=== PATIENT | male | born 1990 | race African-American/Black ===

== ENCOUNTER 2016-10-28 00:04 | Emergency (ER) | payer OTHER ==
[2016-10-28] MEDS ORDERED: Proparacaine 0.5% Ophth Soln 15 ML Bottle EYERT STA (00:15)
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
[2016-10-28 01:33] VITALS: BP 129/77
== END 2016-10-28 01:30 | disposition home or self-care (01) ==
LOC: MW.ED 00:04
DX: S05.01XA Injury of conjunctiva and corneal abrasion without foreign body, right eye, initial encounter (principal)
CPT/HCPCS: 99283

== ENCOUNTER 2017-04-28 17:13 | Emergency (ER) | payer OTHER ==
[2017-04-28] MEDS ORDERED: Diphtheria,Pertussis(Acell),Tetanus Vaccine 0.5 ML Syringe IM ONE (17:16)
[2017-04-28] MEDS ORDERED: Ketorolac 60 MG/2 ML SDV IM ONE (17:16)
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
[2017-04-28] MEDS ORDERED: HYDROmorphone 2 MG/ML Syringe ONE (18:09)
[2017-04-28] MEDS ORDERED: Ondansetron 4 MG/2 ML SDV ONE (18:12)
[2017-04-28] MEDS ORDERED: HYDROmorphone 2 MG/ML Syringe IVPUSH ONE (18:28)
[2017-04-28] MEDS ORDERED: Ondansetron 4 MG/2 ML SDV IVPUSH ONE (18:28)
[2017-04-28 18:50] VITALS: BP 142/86
--- NOTE | 2017-04-29 17:11 | CR ---
EXAM DATE: 04/28/17 PATIENT'S AGE: 26 Patient: PAULINE MAYES Facility: [place], [place] Site . Site : 1990 Study: XRay Extremity Left [id number]/26/2017 6:02:50 PM Ordering Physician: Doctor Lancaster Final Report: INDICATION: Injury. Technique: Two views of the left elbow. Findings: Examination is significant for fracture dislocation of the elbow with the radius and ulna posterior to the distal humerus. Multiple fracture fragments noted likely arising from the lateral epicondyle of the humerus and proximal radius. Impression: Fracture dislocation of the left elbow . Dictated by Christian Roman MD @ Apr 28 2017 6:09PM (Electronic Signature) Report Signed by Proxy. EZEKIEL
== END 2017-04-28 19:08 ==
LOC: MW.ED 17:13
DX: S42.402A Unspecified fracture of lower end of left humerus, initial encounter for closed fracture (principal); S53.125A Posterior dislocation of left ulnohumeral joint, initial encounter; V29.9XXA Motorcycle rider (driver) (passenger) injured in unspecified traffic accident, initial encounter
CPT/HCPCS: 73070; 90471; 90715; 96372; 96374; 96375; 99284; J1170; J1885; J2405

== ENCOUNTER 2017-05-07 22:06 | Emergency (ER) | payer OTHER ==
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
[2017-05-08] MEDS ORDERED: Acetaminophen/HYDROcodone 325-7.5 MG Tab PO ONE (00:28)
[2017-05-08 00:57] VITALS: BP 136/63
--- NOTE | 2017-05-08 13:21 | CR ---
EXAM DATE: 05/07/17 PATIENT'S AGE: 26 Patient: PAULINE MAYES Facility: [place], [place] Site . Site : 1990 Study: XRay Extremity Left Elbow-05/07/2017 10:55:54 PM Ordering Physician: Garry Ferguson Final Report: Indication: Fall today. Technique: Left elbow five views. Comparison: 04/28/2017. Findings: There is posterior displacement/dislocation of the radial head prosthesis relative to the capitellum. There is also widening of the ulnohumeral joint. Mild radial displacement of the proximal ulna relative to the distal humerus. Fracture fragments anterior to the distal humerus persists. No acute fracture demonstrated. Dorsal soft tissue swelling. Impression: Mild persistent or recurrent posterior dislocation of the radial head prosthesis relative to the capitellum with widening of the ulnohumeral joint and mild radial displacement of the proximal ulna. No new/acute fracture demonstrated. Dictated by Cody Acevedo MD @ 05/07/2017 11:28:32 PM Dictated by: Cody Acevedo MD @ 05/07/2017 23:28:48 (Electronic Signature) Report Signed by Proxy. EZEKIEL
--- NOTE | 2017-05-08 13:22 | CR ---
EXAM DATE: 05/07/17 PATIENT'S AGE: 26 Patient: PAULINE MAYES Facility: [place], [place] Site . Site : 1990 Study: XRay Extremity Left Elbow-05/08/2017 12:33:46 AM Ordering Physician: Garry Ferguson Final Report: Indication: Postreduction Technique: Single lateral view left elbow Comparison: Same date at 10:28 p.m. Findings/impression: : Fracture dislocation of the left elbow. Mild persistent subluxation of the humerus from the olecranon, unchanged. Small bone fragments are seen anterior and posterior to the distal humerus, unchanged. A right radial head replacement is noted, with no change and inferior subluxation with respect to the capitellum. Diffuse soft tissue swelling and overlying splint noted. Dictated by Anjelica Peres MD @ May 08 2017 12:34AM (Electronic Signature) Report Signed by Proxy. EZEKIEL
== END 2017-05-08 00:45 | disposition home or self-care (01) ==
LOC: MW.ED 22:06
DX: S59.902D Unspecified injury of left elbow, subsequent encounter (principal); M25.522 Pain in left elbow; X58.XXXD Exposure to other specified factors, subsequent encounter; Z46.89 Encounter for fitting and adjustment of other specified devices
CPT/HCPCS: 73070; 73080; 99282; 99283; A9270; 99284

== ENCOUNTER 2017-05-08 17:43 | Emergency (ER) | payer OTHER ==
[2017-05-08 17:56] VITALS: BP 152/97
--- NOTE | 2017-05-08 18:08 | EDM.PDOC ---
ED HPI GENERAL MEDICAL PROBLEM - General Chief Complaint: General Stated Complaint: CAST CAUSING PAIN Time Seen by Provider: 05/08/17 18:06 Source of Information: Reports: Patient History Limitations: Reports: No Limitations - History of Present Illness INITIAL COMMENTS - FREE TEXT/NARRATIVE: History of present illness: []Patient had a fracture dislocation of his elbow and was seen by today and splint was repositioned. Comes in stating that the distal part of his cast is digging into his hand making his fingers numb. Review of systems: As per history of present illness and below otherwise all systems reviewed and negative. Past medical history: As per history of present illness and as reviewed below otherwise noncontributory. Surgical history: As per history of present illness and as reviewed below otherwise noncontributory. Social history: No reported history of drug or alcohol abuse. Family history: As per history of present illness and as reviewed below otherwise noncontributory. Physical exam: General: Well developed, well nourished in NAD HEENT: Atraumatic, normocephalic, pupils reactive, negative for conjunctival pallor or scleral icterus, mucous membranes moist, throat clear, neck supple, nontender, trachea midline. Lungs: Clear to auscultation, breath sounds equal bilaterally, chest nontender. Heart: S1S2, regular, negative for clicks, rubs, or JVD. Abdomen: Soft, nondistended, nontender. Negative for masses or hepatosplenomegaly. Negative for costovertebral tenderness. Pelvis: Stable nontender. Genitourinary: Deferred. Rectal: Deferred. Extremities: Atraumatic, negative for cords or calf pain. Neurovascular unremarkable. Neuro: Awake, alert, oriented. Cranial nerves II through XII unremarkable. Cerebellum unremarkable. Motor and sensory unremarkable throughout. Exam nonfocal. Diagnostics: [] Therapeutics: []Distal ulnar portion of the cast was removed to alleviate the pressure point Impression: []Cast cutting Plan: []Follow-up with Dr. Akhtar has directed Definitive disposition and diagnosis as appropriate pending reevaluation and review of above. Hand Pain Score (Numeric/FACES): 10 - Related Data Allergies Allergy/AdvReac Type Severity Reaction Status Date / Time No Known Allergies Allergy Verified 05/08/17 17:56 Home Meds: Home Meds oxyCODONE HCl/Acetaminophen [oxyCODONE-Acetaminophen 2.5-325] 1 tab PO ASDIRECTED 05/07/17 [History] Past Medical History - Past Health History Medical/Surgical History: Denies Medical/Surgical History HEENT History: Reports: None Cardiovascular History: Reports: None Respiratory History: Reports: None Gastrointestinal History: Reports: None Genitourinary History: Reports: None Musculoskeletal History: Reports: None Neurological History: Reports: Head Trauma Psychiatric History: Reports: None Endocrine/Metabolic History: Reports: None Hematologic History: Reports: None Immunologic History: Reports: None Oncologic (Cancer) History: Reports: None Dermatologic History: Reports: None - Infectious Disease History Infectious Disease History: Reports: Chicken Pox - Past Surgical History Head Surgeries/Procedures: Reports: None HEENT Surgical History: Reports: None Cardiovascular Surgical History: Reports: None GI Surgical History: Reports: None Male Surgical History: Reports: None Social & Family History - Family History Family Medical History: Noncontributory - Tobacco Use Smoking Status *Q: Never Smoker Years of Tobacco use: 3 Packs/Tins Daily: 0.1 - Caffeine Use Caffeine Use: Reports: None - Recreational Drug Use Recreational Drug Use: No ED ROS GENERAL - Review of Systems Review Of Systems: See Below (See history of present illness) ED EXAM, SKIN/RASH Exam: See Below (See history of present illness) Course - Vital Signs Last Recorded V/S: Last Vital Signs Temp 97.9 F 05/08/17 17:53 Pulse 90 05/08/17 17:53 Resp 18 05/08/17 17:53 BP 152/97 H 05/08/17 17:53 Pulse Ox 100 05/08/17 17:53 Departure - Departure Time of Disposition: 18:08 Disposition: Home, Self-Care 01 Condition: Good Clinical Impression: Cast discomfort - Discharge Information Additional Instructions: The following information is given to patients seen in the emergency department who are being discharged to home. This information is to outline your options for follow-up care. We provide all patients seen in our emergency department with a follow-up referral. The need for follow-up, as well as the timing and circumstances, are variable depending upon the specifics of your emergency department visit. If you don't have a primary care physician on staff, we will provide you with a referral. We always advise you to contact your personal physician following an emergency department visit to inform them of the circumstance of the visit and for follow-up with them and/or the need for any referrals to a consulting specialist. The emergency department will also refer you to a specialist when appropriate. This referral assures that you have the opportunity for follow-up care with a specialist. All of these measure are taken in an effort to provide you with optimal care, which includes your follow-up. Under all circumstances we always encourage you to contact your private physician who remains a resource for coordinating your care. When calling for follow-up care, please make the office aware that this follow-up is from your recent emergency room visit. If for any reason you are refused follow-up, please contact the [facility] Emergency Department at and asked to speak to the emergency department charge nurse. Ice and massage hand to decrease swelling follow-up as directed. Return if symptoms worsen or change
== END 2017-05-08 18:12 | disposition home or self-care (01) ==
LOC: MW.ED 17:43
DX: Z46.89 Encounter for fitting and adjustment of other specified devices (principal)
CPT/HCPCS: 99282

== ENCOUNTER 2017-05-09 23:39 | Emergency (ER) | payer OTHER ==
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
[2017-05-10 01:55] VITALS: BP 163/86
--- NOTE | 2017-05-14 09:38 | CR ---
EXAM DATE: 05/09/17 PATIENT'S AGE: 26 Patient: PAULINE MAYES Facility: [facility] Site . Site : 1990 Study: XRay-Extremity Left [id number]/[id number] 12:26:40 AM Ordering Physician: Garry Ferguson Final Report: INDICATION: S/P SUGERY DEC 5 PAIN WORSENING/UNABLE TO REPOSITION ELBOW FOR OTHER VIEWS INDICATION: Elbow pain worsening, unable to reposition elbow for other views TECHNIQUE: Elbow radiograph 1 view left COMPARISON: 05/08/2017, 05/07/2017, 04/28/2017 FINDINGS: Bones: An osseous fragment is from the radial head is noted without interval change from prior fracture deformity. A radial head prosthesis is noted without interval change. There is a stable gap between the proximal radial diaphysis in the neck of the radial head prosthesis measuring 6 mm. Joints: The elbow joint is unremarkable on the single lateral view. No significant displacement of the anterior or posterior fat pads noted to suggest an effusion. Soft tissues: Moderate diffuse subcutaneous edema and swelling is seen along the dorsal aspect of the elbow. No radiopaque foreign bodies are seen. IMPRESSIONS: 1. No acute osseous injuries or abnormalities are noted. 2. Complete radiographic assessment would require at least an additional orthogonal view. Dictated by Yosef Coleman MD @ 05/10/2017 12:35:28 AM Prelim Report By Dr. Yosef Coleman @ 05/10/2017 12:35:33 AM ADDENDUM Two additional views of the elbow are submitted and demonstrate persistent radial subluxation of the radial head prosthesis, similar to that seen on the study. Prelim Report By Dr. Yosef Coleman @ 05/10/2017 12:35:33 AM Dictated by: Yosef Coleman MD @ 05/10/2017 15:46:18 Signed by: Yosef Coelman MD @ 05/10/2017 3:46:18 PM (Electronic Signature) Signed by: Yosef Coleman MD @05/13/2017 8:45:49 PM (Electronic Signature) Report Signed by Proxy. EZEKIEL
== END 2017-05-10 01:52 | disposition home or self-care (01) ==
LOC: MW.ED 23:39
DX: T84.028A Dislocation of other internal joint prosthesis, initial encounter (principal); M96.89 Other intraoperative and postprocedural complications and disorders of the musculoskeletal system; X58.XXXA Exposure to other specified factors, initial encounter
CPT/HCPCS: 73070-26-LT; 73070-LT; 99283; 99284

== ENCOUNTER 2017-05-31 15:14 | Emergency (ER) | payer OTHER | END 2017-05-31 15:44 | disposition left against medical advice (07) | LOC: MW.ED 15:14 | DX: Z53.21 Procedure and treatment not carried out due to patient leaving prior to being seen by health care provider (principal) ==

== ENCOUNTER 2019-10-02 07:57 | Emergency (ER) | payer OTHER, BC ==
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
[2019-10-02 08:11] VITALS: BP 132/82; PULSE 72
--- NOTE | 2019-10-02 09:33 | CR ---
Left shoulder: 3 views of the left shoulder were obtained. Comparison: No prior shoulder exam is available. Glenohumeral joint appears within normal limits. Acromioclavicular joint shows minimal inferior bony projection which is felt not to be significant enough for impingement. No acute fracture or other abnormality is appreciated. Impression: 1. Findings believed to be incidental at this time within the acromioclavicular joint. 2. Left shoulder study is otherwise unremarkable. Diagnostic code #2 This report was dictated in MDT
--- NOTE | 2019-10-02 09:33 | CR ---
Left hand: 2 views of the left hand were obtained. Comparison: Prior left hand exam of 04/14/15. Joint spaces are preserved. No acute fracture or other bony abnormality is identified. Impression: 1. No abnormality is appreciated on 2 view left hand exam. Diagnostic code #1 This report was dictated in MDT
== END 2019-10-02 09:17 | disposition home or self-care (01) ==
LOC: MW.ED 07:57
DX: S40.012A Contusion of left shoulder, initial encounter (principal); S60.222A Contusion of left hand, initial encounter; V43.52XA Car driver injured in collision with other type car in traffic accident, initial encounter
CPT/HCPCS: 73030-26-LT; 73030-LT; 73120-26-LT; 73120-LT; 99283; 99284-25

== ENCOUNTER 2019-10-03 09:54 | Emergency (ER) | payer OTHER, BC ==
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
[2019-10-03] MEDS ORDERED: Ketorolac 60 MG/2 ML SDV IM ONE (10:14)
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
[2019-10-03 11:24] VITALS: BP 152/90; PULSE 70
== END 2019-10-03 11:21 | disposition home or self-care (01) ==
LOC: MW.ED 09:54
DX: S83.92XA Sprain of unspecified site of left knee, initial encounter (principal); M54.5 Low back pain; V43.52XA Car driver injured in collision with other type car in traffic accident, initial encounter
CPT/HCPCS: 73562; 96372; 99284; J1885; 99283

== ENCOUNTER 2021-02-09 | Emergency (ER) | payer MEDICAID, OTHER ==
[2021-02-09] MEDS ORDERED: diphenhydrAMINE 50 MG/ML SDV IVPUSH ONE (00:24)
[2021-02-09] MEDS ORDERED: Metoclopramide 10 MG/2 ML SDV IVPUSH ONE (00:24)
--- NOTE | 2021-02-09 00:26 | EDM.PDOC ---
ED HPI GENERAL MEDICAL PROBLEM - General Chief Complaint: Headache Stated Complaint: SEVERE HEADACHE Time Seen by Provider: 02/09/21 00:13 Source of Information: Reports: Patient History Limitations: Reports: No Limitations - History of Present Illness INITIAL COMMENTS - FREE TEXT/NARRATIVE: 30-year-old male presents today for headache. States headache started about 3 to 4 hours ago. Patient is a Maxi worse headache is ever had does not occasionally get headaches. He denies any vision changes any numbness weakness in his extremities. He has no other neurologic complaints other than headache. Denies any hit in the head. Patient blood pressure greater than 260s have history of high blood pressure. Headache Pain Score (Numeric/FACES): 10 - Related Data Allergies Allergy/AdvReac Type Severity Reaction Status Date / Time No Known Allergies Allergy Verified 02/09/21 00:17 Home Meds: Home Meds . [No Known Home Meds] 02/09/21 [History] Past Medical History - Past Health History Medical/Surgical History: Denies Medical/Surgical History HEENT History: Reports: None Cardiovascular History: Reports: None Respiratory History: Reports: None Gastrointestinal History: Reports: None Genitourinary History: Reports: None Musculoskeletal History: Reports: None Neurological History: Reports: Head Trauma Psychiatric History: Reports: None Endocrine/Metabolic History: Reports: None Hematologic History: Reports: None Immunologic History: Reports: None Oncologic (Cancer) History: Reports: None Dermatologic History: Reports: None - Infectious Disease History Infectious Disease History: Reports: Chicken Pox - Past Surgical History Head Surgeries/Procedures: Reports: None HEENT Surgical History: Reports: None Cardiovascular Surgical History: Reports: None GI Surgical History: Reports: None Male Surgical History: Reports: None Musculoskeletal Surgical History: Reports: Other (See Below) Other Musculoskeletal Surgeries/Procedures:: left elbow sx Social & Family History - Family History Family Medical History: No Pertinent Family History - Tobacco Use Tobacco Use Status *Q: Never Tobacco User Second Hand Smoke Exposure: No - Caffeine Use Caffeine Use: Reports: None - Recreational Drug Use Recreational Drug Use: No ED ROS GENERAL - Review of Systems Review Of Systems: See Below Constitutional: Reports: No Symptoms HEENT: Reports: No Symptoms Respiratory: Reports: No Symptoms Cardiovascular: Reports: No Symptoms Endocrine: Reports: No Symptoms GI/Abdominal: Reports: No Symptoms : Reports: No Symptoms Musculoskeletal: Reports: No Symptoms Skin: Reports: No Symptoms Neurological: Reports: Headache Psychiatric: Reports: No Symptoms Hematologic/Lymphatic: Reports: No Symptoms Immunologic: Reports: No Symptoms - Physical Exam Exam: See Below Exam Limited By: No Limitations General Appearance: Alert, WD/WN, No Apparent Distress Head Exam: Atraumatic, Normocephalic Respiratory/Chest: No Respiratory Distress, Lungs Clear, Normal Breath Sounds Cardiovascular: Normal Peripheral Pulses, Regular Rate, Rhythm GI/Abdominal: Normal Bowel Sounds, Soft, Non-Tender Neuro Exam (Abbreviated): Alert, Oriented, CN II-XII Intact, Normal Cognition, Normal Gait Extremities: Normal Inspection, Normal Range of Motion Course - Vital Signs Last Recorded V/S: Last Vital Signs Temp 97.6 F 02/09/21 00:07 Pulse 74 02/09/21 00:07 Resp 18 02/09/21 00:07 BP 206/117 H 02/09/21 00:07 Pulse Ox 98 02/09/21 00:07 - Orders/Labs/Meds Meds: Medications Discontinued Medications Generic Name Dose Route Start Last Admin Trade Name Fani PRN Reason Stop Dose Admin Diphenhydramine HCl 25 mg 02/09/21 00:24 02/09/21 00:29 Diphenhydramine 50 Mg/Ml Sdv IVPUSH 02/09/21 00:25 25 mg ONETIME ONE Administration Metoclopramide HCl 10 mg 02/09/21 00:24 02/09/21 00:29 Metoclopramide 10 Mg/2 Ml Sdv IVPUSH 02/09/21 00:25 10 mg ONETIME ONE Administration - Re-Assessments/Exams Free Text/Narrative Re-Assessment/Exam: 02/09/21 01:28 Headache has improved. Patient looks well and sleeping comfortably patient will be discharged his to pick him up Departure - Departure Time of Disposition: 01:29 Disposition: Home, Self-Care 01 Condition: Good Clinical Impression: Migraine - Discharge Information *PRESCRIPTION DRUG MONITORING PROGRAM REVIEWED*: Not Applicable *COPY OF PRESCRIPTION DRUG MONITORING REPORT IN PATIENT KIKI: Not Applicable Instructions: Migraine Headache, [id number] Referrals: PCP,None [Primary Care Provider] - Forms: ED Department Discharge Additional Instructions: The following information is given to patients seen in the emergency department who are being discharged to home. This information is to outline your options for follow-up care. We provide all patients seen in our emergency department with a follow-up referral. The need for follow-up, as well as the timing and circumstances, are variable depending upon the specifics of your emergency department visit. If you don't have a primary care physician on staff, we will provide you with a referral. We always advise you to contact your personal physician following an emergency department visit to inform them of the circumstance of the visit and for follow-up with them and/or the need for any referrals to a consulting specialist. The emergency department will also refer you to a specialist when appropriate. This referral assures that you have the opportunity for follow-up care with a specialist. All of these measure are taken in an effort to provide you with optimal care, which includes your follow-up. Under all circumstances we always encourage you to contact your private physician who remains a resource for coordinating your care. When calling for follow-up care, please make the office aware that this follow-up is from your recent emergency room visit. If for any reason you are refused follow-up, please contact the [facility] Emergency Department at and asked to speak to the emergency department charge nurse. Please follow up with your primary care physician. If you do not have a primary care physician, see below: [facility] [address] [place] [id number] My [facility] [address] [place] [id number] You were seen today for headache. We did a CAT scan that her blood pressure is high did not show any bleeding or concerning findings. Your headache was controlled medication we gave your which should take care of the headache. Please follow-up to primary care physician or neurology if continue to have headaches please refer to return to the ED as well if you have any other concerning signs or symptoms. Sepsis Event Note (ED) - Focused Exam Vital Signs: Vital Signs Temp Pulse Resp BP Pulse Ox 02/09/21 00:07 97.6 F 74 18 206/117 H 98 - Assessment/Plan Plan: Is a 30-year-old male presents today for headache. Patient has no neurological deficits on exam blood pressure slightly elevated greater than 200. We will provide pain control as may be the source of his elevated blood pressure and also get a CT scan of his head.
--- NOTE | 2021-02-09 00:57 | CT ---
INDICATION: headache with elevated BP CT HEAD WITHOUT CONTRAST TECHNIQUE: Multiple axial CT images were performed through the head without intravenous contrast administration. COMPARISON: No previous studies are currently available for comparison. FINDINGS: No acute intracranial hemorrhage is identified. No extra-axial collections are evident and there is no mass effect or midline shift. Ventricles are normal in size and configuration. Brain parenchyma appears normal with unremarkable carrizales-white differentiation. Osseous structures are within normal limits and no fractures are seen. Included portions of the paranasal sinuses and mastoid air cells are normally aerated. IMPRESSION: Normal non-contrast head CT. YAMILETH ARTEAGA MD [facility] Please note that all CT scans at this facility use dose modulation, iterative reconstruction, and/or weight-based dosing when appropriate to reduce radiation dose to as low as reasonably achievable. Dictated by: Chacho Arteaga MD @ 02/09/2021 00:56:37 (Electronically Signed)
[2021-02-09 01:39] VITALS: BP 174/94; PULSE 67
== END 2021-02-09 01:45 | disposition home or self-care (01) ==
LOC: MW.ED
DX: G43.909 Migraine, unspecified, not intractable, without status migrainosus (principal)
CPT/HCPCS: 70450; 96374; 96375; 99283; J1200; J2765

== ENCOUNTER 2021-02-09 18:56 | Emergency (ER) | payer MEDICAID ==
[2021-02-09] MEDS ORDERED: Ketorolac 30 MG/ML SDV IVPUSH ONE (19:34)
[2021-02-09] MEDS ORDERED: amLODIPine 5 MG Tab PO ONE (19:34)
--- NOTE | 2021-02-09 19:37 | EDM.PDOC ---
ED HPI GENERAL MEDICAL PROBLEM - General Chief Complaint: Headache Stated Complaint: HEADACHE, HIGH BP Time Seen by Provider: 02/09/21 19:20 Source of Information: Reports: Patient History Limitations: Reports: No Limitations - History of Present Illness INITIAL COMMENTS - FREE TEXT/NARRATIVE: Patient is a 30-year-old male who presents again for headache. Patient states that he was here yesterday for headache and got a Reglan and Benadryl that improved his headache but he states that it is still present. He also noted his blood pressures been greater than 200 he does not have a history of. Denies any vision changes any chest pain urinary complaints. Patient has appointment with his PMD on Saturday but states that his came in due to his blood pressure being so elevated. He had a CT scan hit head yesterday was normal Headache Pain Score (Numeric/FACES): 10 - Related Data Allergies Allergy/AdvReac Type Severity Reaction Status Date / Time No Known Allergies Allergy Verified 02/09/21 19:20 Home Meds: Home Meds amLODIPine [Norvasc] 5 mg PO DAILY 30 Days #30 tab 02/09/21 [Rx] Past Medical History - Past Health History Medical/Surgical History: Denies Medical/Surgical History HEENT History: Reports: None Cardiovascular History: Reports: Hypertension Respiratory History: Reports: None Gastrointestinal History: Reports: None Genitourinary History: Reports: None Musculoskeletal History: Reports: None Neurological History: Reports: Head Trauma Psychiatric History: Reports: None Endocrine/Metabolic History: Reports: None Hematologic History: Reports: None Immunologic History: Reports: None Oncologic (Cancer) History: Reports: None Dermatologic History: Reports: None - Infectious Disease History Infectious Disease History: Reports: Chicken Pox - Past Surgical History Head Surgeries/Procedures: Reports: None HEENT Surgical History: Reports: None Cardiovascular Surgical History: Reports: None GI Surgical History: Reports: None Male Surgical History: Reports: None Musculoskeletal Surgical History: Reports: Other (See Below) Other Musculoskeletal Surgeries/Procedures:: left elbow sx Social & Family History - Family History Family Medical History: No Pertinent Family History - Tobacco Use Tobacco Use Status *Q: Never Tobacco User - Caffeine Use Caffeine Use: Reports: None - Recreational Drug Use Recreational Drug Use: No ED ROS GENERAL - Review of Systems Review Of Systems: See Below Constitutional: Reports: No Symptoms HEENT: Reports: No Symptoms Respiratory: Reports: No Symptoms Cardiovascular: Reports: No Symptoms Endocrine: Reports: No Symptoms GI/Abdominal: Reports: No Symptoms : Reports: No Symptoms Musculoskeletal: Reports: No Symptoms Skin: Reports: No Symptoms Neurological: Reports: Headache Psychiatric: Reports: No Symptoms Hematologic/Lymphatic: Reports: No Symptoms Immunologic: Reports: No Symptoms - Physical Exam Exam: See Below Exam Limited By: No Limitations General Appearance: Alert, WD/WN, No Apparent Distress Eye Exam: Bilateral Eye: EOMI, Nystagmus, PERRL Head Exam: Atraumatic, Normocephalic Neck: Normal Inspection, Supple, Non-Tender Respiratory/Chest: No Respiratory Distress, Lungs Clear Cardiovascular: Normal Peripheral Pulses, Regular Rate, Rhythm GI/Abdominal: Normal Bowel Sounds, Soft, Non-Tender Neuro Exam (Abbreviated): Alert, Oriented, Normal Cognition, Normal Gait Course - Vital Signs Last Recorded V/S: Last Vital Signs Temp 96.2 F L 02/09/21 19:20 Pulse 73 02/09/21 22:27 Resp 18 02/09/21 19:20 BP 179/118 H 02/09/21 23:07 Pulse Ox 99 02/09/21 22:27 - Orders/Labs/Meds Labs: Laboratory Tests 02/09/21 02/09/21 02/09/21 Range/Units 19:59 19:59 19:59 WBC 4.46 (4.0-11.0) K/uL RBC 5.39 (4.50-5.90) M/uL Hgb 14.3 (13.0-17.0) g/dL Hct 42.0 (38.0-50.0) % MCV 77.9 L (80.0-98.0) fL MCH 26.5 L (27.0-32.0) pg MCHC 34.0 (31.0-37.0) g/dL RDW Std Deviation 40.1 (28.0-62.0) fl RDW Coeff of Jim 14 (11.0-15.0) % Plt Count 263 (150-400) K/uL MPV 10.60 (7.40-12.00) fL Neut % (Auto) 61.0 (48.0-80.0) % Lymph % (Auto) 19.3 (16.0-40.0) % [place] % (Auto) 19.1 H (0.0-15.0) % Eos % (Auto) 0.4 (0.0-7.0) % Baso % (Auto) 0.2 (0.0-1.5) % Neut # (Auto) 2.7 (1.4-5.7) K/uL Lymph # (Auto) 0.9 (0.6-2.4) K/uL [place] # (Auto) 0.9 H (0.0-0.8) K/uL Eos # (Auto) 0.0 (0.0-0.7) K/uL Baso # (Auto) 0.0 (0.0-0.1) K/uL Nucleated RBC % 0.0 /100WBC Nucleated RBCs # 0 K/uL INR 1.16 APTT 29.8 (18.6-31.3) SEC Sodium 136 (136-148) mmol/L Potassium 3.3 L (3.5-5.1) mmol/L Chloride 101 (98-107) mmol/L Carbon Dioxide 27.0 (21.0-32.0) mmol/L BUN 9 (7.0-18.0) mg/dL Creatinine 1.1 (0.8-1.3) mg/dL Est Cr Clr Drug Dosing TNP Estimated GFR (MDRD) > 60.0 ml/min Glucose 99 (74-106) mg/dL Calcium 8.8 (8.5-10.1) mg/dL Total Bilirubin 0.3 (0.2-1.0) mg/dL AST 34 (15-37) IU/L ALT 39 (14-63) IU/L Alkaline Phosphatase 72 (46-116) U/L Troponin I < 0.050 (0.000-0.056) ng/mL Total Protein 7.9 (6.4-8.2) g/dL Albumin 3.9 (3.4-5.0) g/dL Globulin 4.0 (2.6-4.0) g/dL Albumin/Globulin Ratio 1.0 (0.9-1.6) Urine Color Urine Appearance Urine pH (5.0-8.0) Ur Specific Hartwick (1.001-1.035) Urine Protein (NEGATIVE) mg/dL Urine Glucose (UA) (NEGATIVE) mg/dL Urine Ketones (NEGATIVE) mg/dL Urine Occult Blood (NEGATIVE) Urine Nitrite (NEGATIVE) Urine Bilirubin (NEGATIVE) Urine Urobilinogen (<2.0) EU/dL Ur Leukocyte Esterase (NEGATIVE) Urine RBC (0-2/HPF) Urine WBC (0-5/HPF) Ur Epithelial Cells (NONE-FEW) Urine Bacteria (NEGATIVE) Urine Mucus (NONE-MOD) 02/09/21 Range/Units 22:19 WBC (4.0-11.0) K/uL RBC (4.50-5.90) M/uL Hgb (13.0-17.0) g/dL Hct (38.0-50.0) % MCV (80.0-98.0) fL MCH (27.0-32.0) pg MCHC (31.0-37.0) g/dL RDW Std Deviation (28.0-62.0) fl RDW Coeff of Jim (11.0-15.0) % Plt Count (150-400) K/uL MPV (7.40-12.00) fL Neut % (Auto) (48.0-80.0) % Lymph % (Auto) (16.0-40.0) % [place] % (Auto) (0.0-15.0) % Eos % (Auto) (0.0-7.0) % Baso % (Auto) (0.0-1.5) % Neut # (Auto) (1.4-5.7) K/uL Lymph # (Auto) (0.6-2.4) K/uL [place] # (Auto) (0.0-0.8) K/uL Eos # (Auto) (0.0-0.7) K/uL Baso # (Auto) (0.0-0.1) K/uL Nucleated RBC % /100WBC Nucleated RBCs # K/uL INR APTT (18.6-31.3) SEC Sodium (136-148) mmol/L Potassium (3.5-5.1) mmol/L Chloride (98-107) mmol/L Carbon Dioxide (21.0-32.0) mmol/L BUN (7.0-18.0) mg/dL Creatinine (0.8-1.3) mg/dL Est Cr Clr Drug Dosing Estimated GFR (MDRD) ml/min Glucose (74-106) mg/dL Calcium (8.5-10.1) mg/dL Total Bilirubin (0.2-1.0) mg/dL AST (15-37) IU/L ALT (14-63) IU/L Alkaline Phosphatase (46-116) U/L Troponin I (0.000-0.056) ng/mL Total Protein (6.4-8.2) g/dL Albumin (3.4-5.0) g/dL Globulin (2.6-4.0) g/dL Albumin/Globulin Ratio (0.9-1.6) Urine Color YELLOW Urine Appearance CLEAR Urine pH 6.0 (5.0-8.0) Ur Specific [place] >= 1.030 (1.001-1.035) Urine Protein 30 H (NEGATIVE) mg/dL Urine Glucose (UA) NEGATIVE (NEGATIVE) mg/dL Urine Ketones TRACE H (NEGATIVE) mg/dL Urine Occult Blood NEGATIVE (NEGATIVE) Urine Nitrite NEGATIVE (NEGATIVE) Urine Bilirubin NEGATIVE (NEGATIVE) Urine Urobilinogen 0.2 (<2.0) EU/dL Ur Leukocyte Esterase NEGATIVE (NEGATIVE) Urine RBC 0-2 (0-2/HPF) Urine WBC 0-2 (0-5/HPF) Ur Epithelial Cells RARE (NONE-FEW) Urine Bacteria RARE (NEGATIVE) Urine Mucus MODERATE (NONE-MOD) Meds: Medications Discontinued Medications Generic Name Dose Route Start Last Admin Trade Name Freq PRN Reason Stop Dose Admin Amlodipine Besylate 5 mg 02/09/21 19:34 02/09/21 20:02 Amlodipine 5 Mg Tab PO 02/09/21 19:35 5 mg ONETIME ONE Administration Iopamidol 100 ml 02/09/21 22:23 02/09/21 22:24 Iopamidol 755 Mg/Ml 500 Ml Multipack Bottle IVPUSH 02/09/21 22:24 100 ml ONETIME STA Administration Ketorolac Tromethamine 30 mg 02/09/21 19:34 02/09/21 20:03 Ketorolac 30 Mg/Ml Sdv IVPUSH 02/09/21 19:35 30 mg ONETIME ONE Administration - Re-Assessments/Exams Free Text/Narrative Re-Assessment/Exam: 02/09/21 23:09 CTA head does not show any aneurysm. Patient will be sent home with a little pain and to follow-up with her PMD Departure - Departure Time of Disposition: 23:09 Disposition: Home, Self-Care 01 Condition: Good Clinical Impression: Hypertension, Headache - Discharge Information *PRESCRIPTION DRUG MONITORING PROGRAM REVIEWED*: Not Applicable *COPY OF PRESCRIPTION DRUG MONITORING REPORT IN PATIENT KIKI: Not Applicable Prescriptions: amLODIPine [Norvasc] 5 mg PO DAILY 30 Days #30 tab Instructions: Preventing Hypertension Referrals: PCP,None [Primary Care Provider] - Forms: ED Department Discharge Additional Instructions: The following information is given to patients seen in the emergency department who are being discharged to home. This information is to outline your options for follow-up care. We provide all patients seen in our emergency department with a follow-up referral. The need for follow-up, as well as the timing and circumstances, are variable depending upon the specifics of your emergency department visit. If you don't have a primary care physician on staff, we will provide you with a referral. We always advise you to contact your personal physician following an emergency department visit to inform them of the circumstance of the visit and for follow-up with them and/or the need for any referrals to a consulting specialist. The emergency department will also refer you to a specialist when appropriate. This referral assures that you have the opportunity for follow-up care with a specialist. All of these measure are taken in an effort to provide you with optimal care, which includes your follow-up. Under all circumstances we always encourage you to contact your private physician who remains a resource for coordinating your care. When calling for follow-up care, please make the office aware that this follow-up is from your recent emergency room visit. If for any reason you are refused follow-up, please contact the [facility] Emergency Department at and asked to speak to the emergency department charge nurse. Please follow up with your primary care physician. If you do not have a primary care physician, see below: [facility] [address] [place] [id number] [facility] [address] [place] [address] You are seen today for headache and elevated blood pressure. We did another CAT scan does not show any aneurysms in your brain. You will need to get better control of your high blood pressure, started on medication called low pain but also the meantime please try to improve your diet and also exercise. Sepsis Event Note (ED) - Evaluation Sepsis Screening Result: No Definite Risk - Focused Exam Vital Signs: Vital Signs Temp Pulse Resp BP BP Pulse Ox 02/09/21 23:07 179/118 H 02/09/21 22:27 73 169/113 H 99 02/09/21 21:41 189/126 H 02/09/21 20:02 183/124 H 02/09/21 19:20 96.2 F L 75 18 202/127 H 96 - Assessment/Plan Plan: Patient is a 30-year-old male presents today for reoccurring headaches. Also elevated blood pressure. Patient has no symptoms from his elevated blood pressure. We will control his headache provide pain control and reassess.
[2021-02-09 20:23] LABS: BLOOD UREA NITROGEN,BUN 9 mg/dL (7.0-18.0); CHLORIDE,CL 101 mmol/L (98-107); GLUCOSE RANDOM 99 mg/dL (74-106); POTASSIUM,K 3.3 mmol/L (3.5-5.1); SODIUM,NA 136 mmol/L (136-148)
[2021-02-09] MEDS ORDERED: Iopamidol 755 MG/ML 500 ML Multipack Bottle IVPUSH STA (22:23)
[2021-02-09 23:07] VITALS: BP 179/118
--- NOTE | 2021-02-09 23:07 | CT ---
INDICATION: Headache, dizziness. TECHNIQUE: After standard noncontrast head CT, high resolution axial CT images acquired through the head following rapid intravenous administration of iodinated contrast. Multiplanar MIPS of cranial vasculature performed. FINDINGS: Noncontrast head CT: There is no intracranial hemorrhage or fluid collection. The carrizales-white matter differentiation is maintained. The ventricles are of normal morphology. The basal cisterns are clear. CTA head: There is normal filling of the intracranial vasculature; i.e. there is no large vessel occlusion or intracranial stenosis. There is no cerebral aneurysm or evidence for vascular malformation. IMPRESSION: Unremarkable CT/CTA head. Jimmy Kramer MD Neurointerventional [employer]iologist [employer] [facility] Please note that all CT scans at this facility use dose modulation, iterative reconstruction, and/or weight-based dosing when appropriate to reduce radiation dose to as low as reasonably achievable. Dictated by Jmimy Kramer MD @ 02/10/2021 9:59:31 AM (Electronically Signed)
[2021-02-09 23:14] VITALS: PULSE 82
== END 2021-02-09 23:18 | disposition home or self-care (01) ==
LOC: MW.ED 18:56
DX: R51.9 Headache, unspecified (principal); I10 Essential (primary) hypertension
CPT/HCPCS: 36415; 70496; 80053; 81001; 84484; 85025; 85610; 85730; 96374; 99284; A9270; J1885; Q9967

== ENCOUNTER 2022-04-10 15:04 | Emergency (ER) | payer BC ==
[2022-04-10] MEDS ORDERED: Sodium Chloride 0.9% 10 ML Syringe FLUSH PRN (15:46)
[2022-04-10] MEDS ORDERED: Sodium Chloride 0.9% 2.5 ML Syringe FLUSH PRN (15:46)
[2022-04-10] MEDS ORDERED: Ketorolac 30 MG/ML SDV IVPUSH ONE (15:47)
[2022-04-10] MEDS ORDERED: Metoclopramide 10 MG/2 ML SDV IVPUSH ONE (15:47)
[2022-04-10] MEDS ORDERED: diphenhydrAMINE 50 MG/ML SDV IVPUSH ONE (15:47)
[2022-04-10] MEDS ORDERED: Sodium Chloride 0.9% 1,000 ML IV ONE (15:47)
[2022-04-10 16:34] LABS: POTASSIUM,K 3.5 mmol/L (3.5-5.1)
[2022-04-10] MEDS ORDERED: Chlorthalidone 25 MG Tab PO ONE (18:19)
[2022-04-10 18:47] VITALS: BP 178/103; PULSE 64
== END 2022-04-10 18:44 | disposition home or self-care (01) ==
LOC: MW.ED 15:04
DX: I10 Essential (primary) hypertension (principal); Z79.899 Other long term (current) drug therapy
CPT/HCPCS: 36415; 70450; 80053; 83735; 85025; 96374; 96375; 99284; J1200; J1885; J2765; J7030

== ENCOUNTER 2022-06-06 18:39 | Emergency (ER) | payer SELFPAY | END 2022-06-06 21:00 | disposition left against medical advice (07) | LOC: MW.ED 18:39 | DX: Z53.21 Procedure and treatment not carried out due to patient leaving prior to being seen by health care provider (principal) ==

== ENCOUNTER 2022-06-07 05:09 | Emergency (ER) | payer BC ==
[2022-06-07] MEDS ORDERED: Sodium Chloride 0.9% 500 ML IV SCH (06:00)
[2022-06-07] MEDS ORDERED: Metoclopramide 10 MG/2 ML SDV IVPUSH ONE (06:00)
[2022-06-07] MEDS ORDERED: amLODIPine 5 MG Tab PO ONE (06:01)
[2022-06-07] MEDS ORDERED: Ketorolac 30 MG/ML SDV IVPUSH ONE (06:21)
[2022-06-07 07:05] VITALS: BP 174/110; PULSE 76
== END 2022-06-07 07:24 | disposition home or self-care (01) ==
LOC: MW.ED 05:09
DX: R51.9 Headache, unspecified (principal); I10 Essential (primary) hypertension; Z79.899 Other long term (current) drug therapy
CPT/HCPCS: 96374; 96375; 99284; A9270; J1885; J2765; J7040

== ENCOUNTER 2022-08-23 06:32 | Emergency (ER) | payer BC ==
[2022-08-23] MEDS: Sodium Chloride 0.9% 2.5 ML Syringe FLUSH PRN (09:26)
[2022-08-23] MEDS: Morphine 4 MG/ML Syringe IVPUSH ONE (09:27)
[2022-08-23] MEDS: Sodium Chloride 0.9% 10 ML Syringe FLUSH PRN (09:27)
[2022-08-23 09:57] LABS: POTASSIUM,K 3.9 mmol/L (3.5-5.1)
[2022-08-23] MEDS: Iopamidol 755 MG/ML 500 ML Multipack Bottle IVPUSH STA (10:50)
[2022-08-23 12:20] VITALS: PULSE 80
[2022-08-23] MEDS: Lidocaine 5% 700 MG Patch TRDERM ONE (13:38)
[2022-08-23] MEDS: amLODIPine 5 MG Tab PO ONE (13:38)
[2022-08-23 13:39] VITALS: BP 237/120
== END 2022-08-23 13:42 | disposition home or self-care (01) ==
LOC: MW.ED 06:32
DX: S30.1XXA Contusion of abdominal wall, initial encounter (principal); I10 Essential (primary) hypertension; W00.0XXA Fall on same level due to ice and snow, initial encounter
CPT/HCPCS: 36415; 71101; 74177; 80053; 85025; 96374; 99284; A9270; J2270; J3490; Q9967; 99283